=== PATIENT | female | born 1995 | race Caucasian/White ===

== ENCOUNTER 2016-12-17 20:43 | Emergency (ER) | payer OTHER ==
[~2016-12-17] VITALS: Ht 162.6 cm; Wt 58.6 kg
[~2016-12-17 20:43] MED LIST: BCPILLS PO
[2016-12-17] MEDS ORDERED: SODIUM CHLORIDE 0.9% 1000ML 1,000 ML IV STA (21:01)
[2016-12-17 21:07] VITALS: TEMP 37.9; Ht 162.6 cm; Wt 58.6 kg
[2016-12-17 21:11] VITALS: O2SAT 99
--- NOTE | 2016-12-17 21:18 | EMERGENCY ROOM VISIT NOTE ---
History Report prepared by Adams: Fady Coburn Under the Supervision of: Dr. Juan Manuel Stahl D.O. First contact with patient: 20:54 Chief Complaint: SYNCOPE (NEAR SYNCOPE) Stated Complaint: SYNCOPE History of Present Illness The patient is a 21 year old female who presents to the Emergency Room after a syncopal episode that occurred prior to arrival. 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 The patient also complains of feeling dizzy and lightheaded when she stands up. The patient denies getting hurt. She notes she hasn't been eating or drinking much since her wisdom teeth surgery. The patient denies having any prior episodes similar to this. She denies chest pain, shortness of breath, or leg swelling. Source of History: patient Onset: prior to arrival Position: other (global) Associated Symptoms: + LOC, No SOB, No chest pain Note: Other associated symptoms: feeling dizzy and lightheaded with standing Denies: leg swelling Review of Systems See HPI for pertinent positives & negatives. A total of 10 systems reviewed and were otherwise negative. Past Medical & Surgical Medical Problems: (1) Pain, dental Family History Heart disease Kidney stones Social History Smoking Status: Current Every Day Smoker Alcohol Use: none Marital Status: in relationship Housing Status: lives with significant other Occupation Status: employed Current/Historical Medications Scheduled Control Pills ( Control Pills), 1 TAB PO DAILY Penicillin V Potassium (Penicillin V Potassium), 500 MG PO QID Scheduled PRN Hydrocodone/Acetaminophen 7.5MG/325MG ([place] 7.5MG/325MG), 1 TAB PO Q6-8 HRS PRN for Pain Allergies Coded Allergies: No Known Allergies (Unverified , 05/25/14) Physical Exam Vital Signs Date Time Temp Pulse Resp B/P Pulse Ox O2 Delivery O2 Flow Rate FiO2 12/17/16 22:51 79 18 128/88 99 Room Air 12/17/16 22:01 91 16 131/70 98 88 133/87 93 134/86 12/17/16 22:00 91 18 131/70 98 Room Air 12/17/16 21:11 99 Room Air 12/17/16 21:07 37.9 94 18 139/72 99 Room Air 12/17/16 20:57 92 Physical Exam GENERAL: Patient is awake alert in no acute distress patient is resting comfortably and showing no signs of anxiety EYES: The conjunctivae are clear. The pupils are round and reactive. EARS, NOSE, MOUTH AND THROAT: The nose is without any evidence of any deformity. Mucous membranes are moist tongue is midline NECK: The neck is nontender and supple. RESPIRATORY: Normal respiratory effort is noted there is no evidence of wheezing rhonchi or rales CARDIOVASCULAR: Regular rate and rhythm noted there no murmurs rubs or gallops normal S1 normal S2 GASTROINTESTINAL: The abdomen is soft. Bowel sounds are present in all quadrants. Abdomen is nontender MUSCULOSKELETAL/EXTREMITIES: There is no evidence of gross deformity full range of motion is noted in the hips and shoulders SKIN: There is no obvious evidence of any rash. There are no petechiae, pallor or cyanosis noted. NEUROLOGIC: Patient is awake alert and oriented x3 strength is symmetric patellar reflexes are 2+ bilaterally Medical Decision & Procedures ER Provider Diagnostic Interpretation: X-ray results as stated below per interpretation by me and the radiologist. CHEST ONE VIEW PORTABLE CLINICAL HISTORY: Altered mental status. Weakness. COMPARISON STUDY: No previous studies for comparison. FINDINGS: Lung volumes are normal. Apparent hazy bibasilar opacities are likely due to overlying soft tissues. Cardiac size is normal. Mediastinal contours are normal. Pulmonary vascularity is normal. There is no consolidation. IMPRESSION: No acute cardiopulmonary findings. Electronically signed by: Rafi Dominique M.D. 12/17/2016 9:18 PM Dictated Date/Time: 12/17/2016 9:17 PM Laboratory Results 12/17/16 21:45 Red Blood Count 4.10, Mean Corpuscular Volume 83.9, Mean Corpuscular Hemoglobin 29.3, Mean Corpuscular Hemoglobin Concent 34.9, Mean Platelet Volume 10.0, Neutrophils (%) (Auto) 60.8, Lymphocytes (%) (Auto) 28.0, Monocytes (%) (Auto) 10.1, Eosinophils (%) (Auto) 0.7, Basophils (%) (Auto) 0.2, Neutrophils # (Auto ) 6.06, Lymphocytes # (Auto) 2.79, Monocytes # (Auto) 1.01, Eosinophils # (Auto ) 0.07, Basophils # (Auto) 0.02 12/17/16 21:45 Test 12/17/16 21:00 12/17/16 21:45 Urine Color YELLOW Urine Appearance CLEAR (CLEAR) Urine pH 6.5 (4.5-7.5) Urine Specific [place] 1.007 (1.000-1.030) Urine Protein NEG (NEG) Urine Glucose (UA) NEG (NEG) Urine Ketones NEG (NEG) Urine Occult Blood NEG (NEG) Urine Nitrite NEG (NEG) Urine Bilirubin NEG (NEG) Urine Urobilinogen NEG (NEG) Urine Leukocyte Esterase NEG (NEG) White Blood Count 9.97 K/uL (4.8-10.8) Red Blood Count 4.10 M/uL (4.2-5.4) Hemoglobin 12.0 g/dL (12.0-16.0) Hematocrit 34.4 % (37-47) Mean Corpuscular Volume 83.9 fL (80-100) Mean Corpuscular Hemoglobin 29.3 pg (25-34) Mean Corpuscular Hemoglobin Concent 34.9 g/dl (32-36) Platelet Count 225 K/uL (130-400) Mean Platelet Volume 10.0 fL (7.4-10.4) Neutrophils (%) (Auto) 60.8 % Lymphocytes (%) (Auto) 28.0 % Monocytes (%) (Auto) 10.1 % Eosinophils (%) (Auto) 0.7 % Basophils (%) (Auto) 0.2 % Neutrophils # (Auto) 6.06 K/uL (1.4-6.5) Lymphocytes # (Auto) 2.79 K/uL (1.2-3.4) Monocytes # (Auto) 1.01 K/uL (0.11-0.59) Eosinophils # (Auto) 0.07 K/uL (0-0.5) Basophils # (Auto) 0.02 K/uL (0-0.2) RDW Standard Deviation 36.5 fL (36.4-46.3) RDW Coefficient of Variation 11.8 % (11.5-14.5) Immature Granulocyte % (Auto) 0.2 % Immature Granulocyte # (Auto) 0.02 K/uL (0.00-0.02) Anion Gap 9.0 mmol/L (3-11) Est Creatinine Clear Calc Drug Dose 112.4 ml/min Estimated GFR () 145.2 Estimated GFR (Non- 125.3 BUN/Creatinine Ratio 12.2 (10-20) Calcium Level 8.8 mg/dl (8.5-10.1) Magnesium Level 1.8 mg/dl (1.8-2.4) Total Bilirubin 0.8 mg/dl (0.2-1) Direct Bilirubin 0.4 mg/dl (0-0.2) Aspartate Amino Transf (AST/SGOT) 16 U/L (15-37) Alanine Aminotransferase (ALT/SGPT) 19 U/L (12-78) Alkaline Phosphatase 61 U/L (45-117) Troponin I < 0.015 ng/ml (0-0.045) Total Protein 6.9 gm/dl (6.4-8.2) Albumin 3.4 gm/dl (3.4-5.0) Human Chorionic Gonadotropin, Qual NEG (NEG) Laboratory results per my review. Medications Administered Medications (Trade) Dose Ordered Sig/Samantha Route Start Time Stop Time Status Last Admin Dose Admin Sodium Chloride (Nss 1000ml) 1,000 ml @ 999 mls/hr Q1H1M STAT IV 12/17/16 21:01 12/17/16 22:01 DC 12/17/16 21:00 999 MLS/HR ECG Indication: syncope Rate (beats per minute): 91 Rhythm: normal sinus Findings: no acute ischemic change, no ectopy, other (no acute ST segment abnormality) ED Course 2058: The patient was evaluated in room A2. A complete history and physical examination were performed. 2100: Ordered NSS 1000 ml @ 999 mls/hr IV. 2230: At this time, I reevaluated the patient and she was feeling better. 5: Upon reevaluation, the patient is resting comfortably. I discussed the results and treatment plan with her. She verbalized agreement of the treatment plan. The patient was discharged home. Medical Decision Differential diagnosis: Etiologies such as vasovagal event, infection, hypoglycemia, electrolyte abnormalities, cardiac sources, intracerebral event, toxicologic, neurologic, as well as others were entertained. Nursing notes reviewed. The patient is a 21-year-old female who presented to the emergency department for an evaluation after having a syncopal episode. 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 The patient did not have any focal neurologic deficits. She was treated with IV fluids in the emergency department. On subsequent reevaluation she was feeling much better. She was encouraged to rest and avoid any strenuous activity. She was also encouraged to call her primary care physician and schedule follow-up appointment and discuss further testing such as echocardiogram and Holter monitor. Otherwise she was encouraged to return to the emergency Department immediately if symptoms change worsen or the need arises. Impression Primary Impression: Syncope Scribe Attestation The scribe's documentation has been prepared under my direction and personally reviewed by me in its entirety. I confirm that the note above accurately reflects all work, treatment, procedures, and medical decision making performed by me. Departure Information Dispostion Home / Self-Care Referrals Rashi Ferrari M.D. (PCP) Forms HOME CARE DOCUMENTATION FORM, IMPORTANT VISIT INFORMATION Patient Instructions [facility], Syncope Additional Instructions Call your family in the morning to schedule a follow-up appointment. You may require further testing such as an echocardiogram or Holter monitor further evaluate the cause of your symptoms. Rest and avoid any strenuous activity. Return to the emergency department immediately if symptoms change worsen or the need arises. Problem Qualifiers Primary Impression: Syncope Syncope type: unspecified Qualified Codes: R55 - Syncope and collapse
[2016-12-17] MEDS ORDERED: PNC/500 PO (21:28)
[2016-12-17] MEDS ORDERED: HYDR-3983 PO (21:28)
[2016-12-17 21:34] LABS: URINE APPEARANCE CLEAR (CLEAR); URINE BILIRUBIN NEG (NEG); URINE COLOR YELLOW; URINE NITRITE NEG (NEG); URINE PH 6.5 (4.5-7.5); URINE SPECIFIC GRAVITY 1.007 (1.000-1.030); UROBILINOGEN NEG (NEG)
[2016-12-17 21:36] LABS: MANUAL MICROSCOPIC REQUIRED? NO; REVIEW REQ? NO
[2016-12-17 21:56] LABS: BASO % 0.2 %; BASO ABS # 0.02 K/uL (0-0.2); COMPLETE YES; EOS % 0.7 %; HEMATOCRIT 34.4 % (37-47); IG% 0.2 %; LYMPH ABS # 2.79 K/uL (1.2-3.4); MEAN CELL VOLUME 83.9 fL (80-100); MEAN CORPUSCULAR HEMOGLOBIN 29.3 pg (25-34); MEAN CORPUSCULAR HGB CONC 34.9 g/dl (32-36); MONO % 10.1 %; NEUT % 60.8 %; PLATELET COUNT 225 K/uL (130-400); WHITE BLOOD COUNT 9.97 K/uL (4.8-10.8)
[2016-12-17 22:12] LABS: ALT/SGPT 19 U/L (12-78); BLOOD UREA NITROGEN 8 mg/dl (7-18); BUN/CREATININE RATIO 12.2 (10-20); CARBON DIOXIDE 24 mmol/L (21-32); CHLORIDE 108 mmol/L (98-107); CREATININE 0.69 mg/dl (0.60-1.20); GLUCOSE 72 mg/dl (70-99); MAGNESIUM 1.8 mg/dl (1.8-2.4); POTASSIUM 3.3 mmol/L (3.5-5.1); SODIUM 141 mmol/L (136-145)
[2016-12-17 22:17] LABS: ALKALINE PHOSPHATASE 61 U/L (45-117); AST/SGOT 16 U/L (15-37)
[2016-12-17 22:22] LABS: CALCIUM 8.8 mg/dl (8.5-10.1); PREG INTERNAL NEGATIVE QC NEG CLEAR BACKGROUND; PREG INTERNAL POSITIVE QC POS CONTROL LINE
[2016-12-17 22:51] VITALS: BP 128/88; PULSE 79; O2SAT 99
== END 2016-12-17 23:01 | disposition home or self-care (01) ==
LOC: EDBD 20:43 → C.EDA 20:46
DX: R55 Syncope and collapse (principal); Z79.3 Long term (current) use of hormonal contraceptives; Z82.49 Family history of ischemic heart disease and other diseases of the circulatory system; Z84.1 Family history of disorders of kidney and ureter; F17.200 Nicotine dependence, unspecified, uncomplicated

== ENCOUNTER 2021-02-16 17:40 | Observation (INO) ==
[2021-02-16] MEDS ORDERED: SODIUM CHLORIDE 0.9% 1000ML 1,000 ML IV SCH (18:00)
--- NOTE | 2021-02-16 18:22 | Emergency Department Note ---
Impression & Plan Molar , Abnormal vaginal bleeding ED Provider Note CHIEF COMPLAINT: Vaginal bleeding, possible miscarriage HISTORY OF PRESENTING ILLNESS: This is a 26-year-old female who presents to the emergency department by private vehicle with complaint of vaginal bleeding. She states she has been having bleeding for the past week, but she had several gushes of blood and passed several large clots today. She notes that she was evaluated initially at [place] emergency department where they told her she was and told her she had a molar . She did not realize she was and is not sure of when her last period was. She is G3, P1 with a history of a possible miscarriage about 2 years ago. She states that she followed up with Priscilla Servin T[employer] OFFICER, and was scheduled to have a D&C this coming Wednesday. She denies any abdominal pain and has been having mild cramping off and on for the past week similar to period cramps. She currently rates her pain 3/10. She denies any fevers, chills, or loss of appetite. She denies any dizziness or syncope. She denies any chest pain, chest tightness, shortness of breath, palpitations, cough or URI symptoms. She denies any back pain. She denies any nausea or vomiting or urinary complaints. REVIEW OF SYSTEMS: A complete 10 point review of systems was reviewed with the patient with pertinent positives and negatives as per history of present illness. All else were negative. PAST MEDICAL HISTORY: No significant past medical or surgical history SOCIAL HISTORY: Lives at home, she is a current everyday smoker ALLERGIES: No known allergies PHYSICAL EXAM: CONSTITUTIONAL: Pleasant and cooperative. Nontoxic-appearing and in no acute distress, but appears anxious. Mildly dehydrated, but otherwise well appearing and well nourished. HEENT: Normocephalic, atraumatic. Pharynx normal. Tacky mucous membranes. NECK: Supple, full active range of motion without discomfort. RESPIRATORY: Clear to auscultation bilaterally with no wheezing, crackles, rhonchi or stridor. Equal expansion bilaterally. CARDIOVASCULAR: Regular rate and rhythm with no murmurs, rubs or gallops. Normal peripheral perfusion. No edema. GASTROINTESTINAL: Tender to palpation in the suprapubic abdomen, no rebound tenderness or guarding. Soft, nondistended. No palpable masses or HSM. Bowel sounds present in all quadrants. No CVA tenderness bilaterally. MUSCULOSKELETAL: Full range of motion of all joints without discomfort. INTEGUMENTARY: No rash or other significant dermatologic conditions noted. NEUROLOGIC: Alert and oriented X 4 with normal affect. Normal strength and sensation in all 4 extremities. Normal beach. Normal gait observed. ED COURSE AND MEDICAL DECISION MAKING: CC: Patient presenting with complaint of vaginal bleeding and abdominal cramping DIFFERENTIAL DIAGNOSIS: Includes, but not limited to Etiologies such as threatened AB, miscarriage, ectopic , dysfunction uterine bleeding, bleeding dyscrasia, trauma, infection, as well as others were entertained. INTERPRETATION OF LABS: Mild leukocytosis, mild anemia, normal platelets, mild hypokalemia, no other significant electrolyte abnormalities, normal renal function, normal liver enzymes. Coagulation factors within normal limits. Se rum quant significantly elevated. Covid negative. Blood type O+. IMAGING: Ultrasound OB first trimester: Preliminary findings onlystatrad Uterus is enlarged in size, containing complex solid and thick material in the endometrium, consistent with molar . No live intrauterine identified. Ovaries are normal in size and echogenicity. MEDICATION RECONCILIATION: I attest that I have personally reviewed the patient's current medication list. INITIAL VITAL SIGNS REVIEW: I reviewed the patient's initial vital signs and interpret them as follows: T: Afebrile; BP: Mildly hypertensive; HR: Tachycardic; RR: Within normal limits; Pulse Ox: Within normal limits on room air. MDM SUMMARY: Patient was evaluated at bedside, history and physical exam performed. Patient is alert and oriented, in no acute distress, but appears slightly anxious, resting in the stretcher. She is afebrile and nontoxic-appearing, she is noted to be tachycardic and mildly dehydrated. Abdomen is mildly tender to palpation in the suprapubic abdomen, but no acute abdomen. Cardiac monitoring: An order was placed for continuous cardiac monitoring. The monitor shows a rate of 112 bpm with sinus tachycardia rhythm. A pelvic exam was deferred at this time due to patient discomfort. Orders were placed for labs including beta hCG quantitative level and type and screen, IV fluid bolus for hydration, IV Tylenol for pain, and pelvic ultrasound to evaluate for heavy vaginal bleeding. Patient discussed with Dr. Woodard, who agrees with my assessment, plan, and disposition. Labs and imaging reviewed, she is not acutely anemic. Serum quant hCG is still significantly elevated. Pelvic ultrasound reviewed, noting recent molar and no live intrauterine identified. The patient has had persistent vaginal bleeding with passage of several large clots. I spoke on the phone with Dr. Hood, T[employer], who feels the patient should go to the OR tonight for D&E procedure. He did say that it was reasonable to give her Toradol for pain. Patient reassessed multiple times throughout ED stay, she has remained hemodynamically stable and afebrile and notes that her pain is improving after the Toradol and Tylenol. Her tachycardia is downtrending with IV fluids. The patient was updated on all results and plan for admission and surgery tonight, all questions were answered to the best of my ability and the patient was comfortable with this plan. The patient was stable at time of admission. The chart was completed utilizing [employer] Speech voice recognition software. Grammatical errors, random word insertions, pronoun errors, and incomplete sentences are an occasional consequence of this system due to software limitations, ambient noise, and hardware issues. Any formal questions or concerns about the content, text, or information contained within the body of this dictation should be directly addressed to the nurse practitioner for clarification. Past Med/Surg History Medical History GERD (gastroesophageal reflux disease) only during Social History Smoking Status: Current every day smoker Cigarettes Per Day: 10-15 cig a day; Second Hand Exposure: No; Hx Alcohol Use: Yes Hx Substance Use: No Preferred Language: Indonesian Communication Ability: Effective [employer] Grinder Required: No Beliefs That Will Affect Care: None marital status: Current Living Situation: Spouse Feels Safe at Home: Yes Assistive Devices: Contacts Allergies Allergies Allergy/AdvReac Type Severity Reaction Status Date / Time No Known Allergies Allergy Verified 02/16/21 18:20 Home Meds Home Medications Medication Instructions Recorded Confirmed [id number] 1 tab PO DAILY 02/16/21 02/16/21 [] Results & Data (ED) Vital Signs Vital Signs - 24 hr 02/16/21 17:43 02/16/21 20:18 02/16/21 20:19 Temperature 36.3 C L Temperature Source Temporal Artery Scan Pulse Rate 125 H 110 H Pulse Rate [Apical] Pulse Rate from SpO2 Sensor 109 H Pulse Rhythm [Apical] Pulse Strength [Apical] Respiratory Rate 20 14 Respiratory Effort / Characteristics Respiratory Depth Normal Respiratory Pattern Blood Pressure 140/80 115/85 Blood Pressure [Right Arm] Blood Pressure Mean 100 95 Blood Pressure Mean [Right Arm] Blood Pressure Position [Right Arm] Pulse Oximetry 99 98 Oxygen Delivery Method Room Air Room Air Room Air Sepsis Recent Fever Within 48 Hours No Sepsis New/Unexplained Change in Mental Status N/A Sepsis Action Taken by Nursing No Action Required 02/16/21 20:21 02/16/21 21:39 02/16/21 21:59 Temperature Temperature Source Pulse Rate Pulse Rate [Apical] 107 H 100 H Pulse Rate from SpO2 Sensor 96 H Pulse Rhythm [Apical] Regular Regular Pulse Strength [Apical] Normal Normal Respiratory Rate 16 15 Respiratory Effort / Characteristics Non-Labored Spontaneous Non-Labored Spontaneous Non-Labored Spontaneous Respiratory Depth Normal Normal Normal Respiratory Pattern Regular Regular Regular Blood Pressure 120/71 Blood Pressure [Right Arm] 115/85 120/71 Blood Pressure Mean 87 Blood Pressure Mean [Right Arm] 95 87 Blood Pressure Position [Right Arm] Sitting Lying Pulse Oximetry 98 100 Oxygen Delivery Method Room Air Room Air Sepsis Recent Fever Within 48 Hours Sepsis New/Unexplained Change in Mental Status Sepsis Action Taken by Nursing Laboratory Data Result diagrams: 02/16/21 17:58 02/16/21 17:58 Lab Results 02/16/21 02/16/21 02/16/21 Range/Units 17:58 17:58 17:58 WBC 12.18 H (4.8-10.8) K/uL RBC 3.41 L (4.2-5.4) M/uL Hgb 10.4 L (12.0-16.0) g/dL Hct 30.1 L (37-47) % MCV 88.3 (80-100) fL MCH 30.5 (25-34) pg MCHC 34.6 (32-36) g/dL RDW Std Deviation 43.0 (36.4-46.3) fL RDW Coeff of Patrizia 13.4 (11.5-14.5) % Plt Count 324 (130-400) K/uL MPV 9.6 (7.4-10.4) fL Immature Gran % (Auto) 0.2 % Neut % (Auto) 66.4 % Lymph % (Auto) 22.1 % [place] % (Auto) 10.5 % Eos % (Auto) 0.7 % Baso % (Auto) 0.1 % Neut # (Auto) 8.09 H (1.4-6.5) K/uL Lymph # (Auto) 2.69 (1.2-3.4) K/uL [place] # (Auto) 1.28 H (0.11-0.59) K/uL Eos # (Auto) 0.08 (0-0.5) K/uL Baso # (Auto) 0.01 (0-0.2) K/uL Immature Gran # (Auto) 0.03 H (0.00-0.02) K/uL PT 10.0 (9.0-12.0) Seconds INR 1.0 (0.9-1.1) APTT 27.2 (21.0-31.0) Seconds PTT Ratio 1.0 Sodium (136-145) mmol/L Potassium (3.5-5.1) mmol/L Chloride (98-107) mmol/L Carbon Dioxide (21-32) mmol/L Anion Gap (3-11) BUN (7-18) mg/dl Creatinine (0.6-1.2) mg/dl Est Cr Clr Drug Dosing ml/min Est GFR ( Amer) ml/min Est GFR (Non-Af Amer) ml/min BUN/Creatinine Ratio (10-20) Glucose (70-99) mg/dl Calcium (8.5-10.1) mg/dl Total Bilirubin (0.2-1) mg/dl AST (15-37) U/L ALT (12-78) U/L Alkaline Phosphatase (45-117) U/L Total Protein (6.4-8.2) gm/dl Albumin (3.4-5.0) gm/dl Globulin (2.5-4.0) gm/dl Albumin/Globulin Ratio (0.9-2) HCG, Quant mIU/ml COVID-19 Eval Order SARS-CoV-2 (PCR) (Negative) Blood Type O Positive Antibody Screen NEGATIVE 02/16/21 02/16/21 02/16/21 Range/Units 17:58 17:58 21:49 WBC (4.8-10.8) K/uL RBC (4.2-5.4) M/uL Hgb (12.0-16.0) g/dL Hct (37-47) % MCV (80-100) fL MCH (25-34) pg MCHC (32-36) g/dL RDW Std Deviation (36.4-46.3) fL RDW Coeff of Patrizia (11.5-14.5) % Plt Count (130-400) K/uL MPV (7.4-10.4) fL Immature Gran % (Auto) % Neut % (Auto) % Lymph % (Auto) % [place] % (Auto) % Eos % (Auto) % Baso % (Auto) % Neut # (Auto) (1.4-6.5) K/uL Lymph # (Auto) (1.2-3.4) K/uL [place] # (Auto) (0.11-0.59) K/uL Eos # (Auto) (0-0.5) K/uL Baso # (Auto) (0-0.2) K/uL Immature Gran # (Auto) (0.00-0.02) K/uL PT (9.0-12.0) Seconds INR (0.9-1.1) APTT (21.0-31.0) Seconds PTT Ratio Sodium 137 (136-145) mmol/L Potassium 3.3 L (3.5-5.1) mmol/L Chloride 105 (98-107) mmol/L Carbon Dioxide 22 (21-32) mmol/L Anion Gap 10.0 (3-11) BUN 11 (7-18) mg/dl Creatinine 0.60 (0.6-1.2) mg/dl Est Cr Clr Drug Dosing 123.8 ml/min Est GFR ( Amer) 146.8 ml/min Est GFR (Non-Af Amer) 126.7 ml/min BUN/Creatinine Ratio 18.6 (10-20) Glucose 97 (70-99) mg/dl Calcium 9.1 (8.5-10.1) mg/dl Total Bilirubin 0.4 (0.2-1) mg/dl AST 14 L (15-37) U/L ALT 22 (12-78) U/L Alkaline Phosphatase 87 (45-117) U/L Total Protein 7.5 (6.4-8.2) gm/dl Albumin 3.6 (3.4-5.0) gm/dl Globulin 3.9 (2.5-4.0) gm/dl Albumin/Globulin Ratio 0.9 (0.9-2) HCG, Quant 665666 mIU/ml COVID-19 Eval Order Covid19 at [facility] SARS-CoV-2 (PCR) (Negative) Blood Type Antibody Screen 02/16/21 Range/Units 21:49 WBC (4.8-10.8) K/uL RBC (4.2-5.4) M/uL Hgb (12.0-16.0) g/dL Hct (37-47) % MCV (80-100) fL MCH (25-34) pg MCHC (32-36) g/dL RDW Std Deviation (36.4-46.3) fL RDW Coeff of Patrizia (11.5-14.5) % Plt Count (130-400) K/uL MPV (7.4-10.4) fL Immature Gran % (Auto) % Neut % (Auto) % Lymph % (Auto) % [place] % (Auto) % Eos % (Auto) % Baso % (Auto) % Neut # (Auto) (1.4-6.5) K/uL Lymph # (Auto) (1.2-3.4) K/uL [place] # (Auto) (0.11-0.59) K/uL Eos # (Auto) (0-0.5) K/uL Baso # (Auto) (0-0.2) K/uL Immature Gran # (Auto) (0.00-0.02) K/uL PT (9.0-12.0) Seconds INR (0.9-1.1) APTT (21.0-31.0) Seconds PTT Ratio Sodium (136-145) mmol/L Potassium (3.5-5.1) mmol/L Chloride (98-107) mmol/L Carbon Dioxide (21-32) mmol/L Anion Gap (3-11) BUN (7-18) mg/dl Creatinine (0.6-1.2) mg/dl Est Cr Clr Drug Dosing ml/min Est GFR ( Amer) ml/min Est GFR (Non-Af Amer) ml/min BUN/Creatinine Ratio (10-20) Glucose (70-99) mg/dl Calcium (8.5-10.1) mg/dl Total Bilirubin (0.2-1) mg/dl AST (15-37) U/L ALT (12-78) U/L Alkaline Phosphatase (45-117) U/L Total Protein (6.4-8.2) gm/dl Albumin (3.4-5.0) gm/dl Globulin (2.5-4.0) gm/dl Albumin/Globulin Ratio (0.9-2) HCG, Quant mIU/ml COVID-19 Eval Order SARS-CoV-2 (PCR) NEGATIVE (Negative) Blood Type Antibody Screen Administered Medications Discontinued Medications Acetaminophen (Acetaminophen 1000 Mg/100 Ml Iv) 1,000 mg IV NOW STA Stop: 02/16/21 20:36 Last Admin: 02/16/21 20:59 Dose: 1,000 mg Documented by: [id number] Sodium Chloride (Nss 1000ml) 1,000 mls @ 999 mls/hr IV .Q1H1M HITESH Stop: 02/16/21 19:00 Last Infusion: 02/16/21 21:15 Dose: 0 mls/hr Documented by: [id number] Admin: 02/16/21 20:00 Dose: 999 mls/hr Documented by: [id number] Ketorolac Tromethamine (Ketorolac Tromethamine 15 Mg/Ml Vial) Confirm Administered Dose 15 mg .ROUTE .STK-MED ONE Stop: 02/16/21 20:57 Last Admin: 02/16/21 20:59 Dose: 15 mg Documented by: [id number] Ketorolac Tromethamine (Ketorolac Tromethamine 15 Mg/Ml Vial) 15 mg IV NOW STA Stop: 02/16/21 20:58 Last Admin: 02/16/21 21:04 Dose: Not Given Documented by: [id number] Discharge Plan Visit Data Chief Complaint: Vaginal Bleeding Stated Complaint: miscarry ED Provider: Almas Woodard ED Midlevel Provider: Sisi Ramos Discharge Problem: Molar , Abnormal vaginal bleeding Patient Disposition: Admitted As Inpatient Forms Stand Alone Forms: [employer] Prescriptions Prescriptions: No Action 28-800 mg-mcg Tablet 1 tab PO DAILY RF: 0 Referrals Referrals: PCP,NO [Primary Care Provider] -
[2021-02-16 18:34] LABS: Basophils # (auto) 0.01 K/uL (0-0.2); Basophils % (auto) 0.1 %; Eosinophils # (auto) 0.08 K/uL (0-0.5); Eosinophils % (auto) 0.7 %; Hematocrit (blood only) 30.1 % (37-47); Hemoglobin 10.4 g/dL (12.0-16.0); Immature Granulocytes # (auto) 0.03 K/uL (0.00-0.02); Immature Granulocytes % (auto) 0.2 %; Lymphocytes # (auto) 2.69 K/uL (1.2-3.4); Lymphocytes % (auto) 22.1 %; Mean Corpuscular Hemoglobin 30.5 pg (25-34); Mean Corpuscular Hgb Conc 34.6 g/dL (32-36); Mean Corpuscular Volume 88.3 fL (80-100); Mean Platelet Volume 9.6 fL (7.4-10.4); Monocytes # (auto) 1.28 K/uL (0.11-0.59); Monocytes % (auto) 10.5 %; Neutrophils # (auto) 8.09 K/uL (1.4-6.5); Neutrophils % (auto) 66.4 %; Platelet Count 324 K/uL (130-400); RDW Coefficient of Variation 13.4 % (11.5-14.5); Red Blood Count 3.41 M/uL (4.2-5.4); White Blood Count 12.18 K/uL (4.8-10.8)
[2021-02-16 18:43] LABS: Partial Thromboplastin Time 27.2 Seconds (21.0-31.0)
[2021-02-16 18:56] LABS: Albumin Level 3.6 gm/dl (3.4-5.0); BUN Creatinine Ratio 18.6 (10-20); Calcium 9.1 mg/dl (8.5-10.1); Creatinine Clr Calc Pharmacy 123.8 ml/min; Est GFR (African American) 146.8 ml/min; Est GFR (Non-African American) 126.7 ml/min; Potassium 3.3 mmol/L (3.5-5.1)
[2021-02-16 18:59] LABS: Albumin Globulin Ratio 0.9 (0.9-2); Bilirubin,Total 0.4 mg/dl (0.2-1); Globulin 3.9 gm/dl (2.5-4.0); Total Protein 7.5 gm/dl (6.4-8.2)
[2021-02-16] MEDS ORDERED: ACETAMINOPHEN 1000 MG/100 ML IV IV STA (20:35)
[2021-02-16] MEDS ORDERED: KETOROLAC TROMETHAMINE 15 MG/ML VIAL ONE (20:56)
[2021-02-16] MEDS ORDERED: KETOROLAC TROMETHAMINE 15 MG/ML VIAL IV STA (20:57)
--- NOTE | 2021-02-16 21:57 | History & Physical Report ---
Date of Service February 16, 2021 Assessment & Plan (1) Molar : History of Present Illness Chief Complaint: vaginal bleeding Primary Care Provider: NO PCP 26 F [id number] with onset of bleeding this afternoon with known molar scheduled to have D&E on Wednesday presents with heavy bleeding and passage of clots. Allergies Allergy/AdvReac Type Severity Reaction Status Date / Time No Known Allergies Allergy Verified 02/16/21 18:20 Home Medications Medication Instructions Recorded Confirmed Type [id number] fumarate-FA 1 tab PO DAILY 02/16/21 02/16/21 History [] Patient History Medical History GERD (gastroesophageal reflux disease) only during Social History Smoking Status: Current every day smoker Cigarettes Per Day: 10-15 cig a day; Second Hand Exposure: No; Hx Alcohol Use: Yes Hx Substance Use: No Preferred Language: Kyrgyz Communication Ability: Effective Director Student [employer] Required: No Beliefs That Will Affect Care: None marital status: Current Living Situation: Spouse Feels Safe at Home: Yes Assistive Devices: Contacts OB History x1 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 History Miscarriage x1 Review of Systems All systems reviewed & are unremarkable except as noted in HPI & below Physical Exam Constitutional: WD/WN, vitals as above + acute distress and + ill appearing Eyes: PERRL, conjunctivae normal, anicteric sclerae Respiratory: normal respiratory effort, lungs clear to auscultation Cardiovascular: Rate/Rhythm: regular rate and + tachycardic Gastrointestinal (Abdomen): Percussion/Palpation: abdomen soft and normal to percussion Skin: no rashes, warm and dry Neurologic: patellar DTR's 2+ bilat, sensation intact Psychiatric: A+Ox3, euthymic affect Results & Data ([facility]) Vital Signs (Past 12 Hours) Vital Signs Temp Pulse Pulse Resp BP BP Pulse Ox 02/16/21 20:21 107 H 16 115/85 98 02/16/21 17:43 36.3 C L 125 H 20 140/80 99 Laboratory Results Laboratory Results - last 48 hr 02/16/21 02/16/21 02/16/21 17:58 17:58 17:58 WBC 12.18 H RBC 3.41 L Hgb 10.4 L Hct 30.1 L MCV 88.3 MCH 30.5 MCHC 34.6 RDW Std Deviation 43.0 RDW Coeff of Patrizia 13.4 Plt Count 324 MPV 9.6 Immature Gran % (Auto) 0.2 Neut % (Auto) 66.4 Lymph % (Auto) 22.1 [place] % (Auto) 10.5 Eos % (Auto) 0.7 Baso % (Auto) 0.1 Neut # (Auto) 8.09 H Lymph # (Auto) 2.69 [place] # (Auto) 1.28 H Eos # (Auto) 0.08 Baso # (Auto) 0.01 Immature Gran # (Auto) 0.03 H PT 10.0 INR 1.0 APTT 27.2 PTT Ratio 1.0 Sodium Potassium Chloride Carbon Dioxide Anion Gap BUN Creatinine Est Cr Clr Drug Dosing Est GFR ( Amer) Est GFR (Non-Af Amer) BUN/Creatinine Ratio Glucose Calcium Total Bilirubin AST ALT Alkaline Phosphatase Total Protein Albumin Globulin Albumin/Globulin Ratio HCG, Quant COVID-19 Eval Order Blood Type O Positive 02/16/21 02/16/21 02/16/21 17:58 17:58 21:49 WBC RBC Hgb Hct MCV MCH MCHC RDW Std Deviation RDW Coeff of Patrizia Plt Count MPV Immature Gran % (Auto) Neut % (Auto) Lymph % (Auto) [place] % (Auto) Eos % (Auto) Baso % (Auto) Neut # (Auto) Lymph # (Auto) [place] # (Auto) Eos # (Auto) Baso # (Auto) Immature Gran # (Auto) PT INR APTT PTT Ratio Sodium 137 Potassium 3.3 L Chloride 105 Carbon Dioxide 22 Anion Gap 10.0 BUN 11 Creatinine 0.60 Est Cr Clr Drug Dosing 123.8 Est GFR ( Amer) 146.8 Est GFR (Non-Af Amer) 126.7 BUN/Creatinine Ratio 18.6 Glucose 97 Calcium 9.1 Total Bilirubin 0.4 AST 14 L ALT 22 Alkaline Phosphatase 87 Total Protein 7.5 Albumin 3.6 Globulin 3.9 Albumin/Globulin Ratio 0.9 HCG, Quant [id number] COVID-19 Eval Order Covid19 at [facility] Blood Type Code Status & VTE Plan VTE Prophylaxis Plan VTE Prophylaxis will be ordered: No
[2021-02-16] MEDS ORDERED: SUCCINYLCHOLINE CHLORIDE 20 MG/ML 10 ML VIAL IV ONE (22:33)
[2021-02-16] MEDS ORDERED: PROPOFOL IV EMULSION 10 MG/ML 20 ML VIAL IV ONE (22:33)
[2021-02-16] MEDS ORDERED: MIDAZOLAM HCL 1 MG/ML 2ML VIAL ONE (22:33)
[2021-02-16] MEDS ORDERED: fentaNYL citrate 100 MCG/2 ML VIAL ONE (22:33)
[2021-02-16] MEDS ORDERED: ONDANSETRON INJ 2 MG/ML 2 ML VIAL ONE (22:41)
[2021-02-16] MEDS ORDERED: DEXAMETHASONE SOD INJ 4 MG/ML VIAL ONE (22:41)
[2021-02-16] MEDS ORDERED: PROMETHAZINE HCL 12.5 MG in SODIUM CHLORIDE 0.9% 50 ML IV PRN (23:13)
[2021-02-16] MEDS ORDERED: ePHEDrine sulfate 50 MG/ML AMP IV PRN (23:13)
[2021-02-16] MEDS ORDERED: fentaNYL citrate 100 MCG/2 ML VIAL IV PRN (23:13)
[2021-02-16] MEDS ORDERED: ATROPINE SULFATE 0.1 MG/ML 10ML SYR IV PRN (23:13)
[2021-02-16] MEDS ORDERED: HYDROmorphone INJ 2 MG/ML SYR/VIAL IV PRN (23:13)
[2021-02-16] MEDS ORDERED: ONDANSETRON INJ 2 MG/ML 2 ML VIAL IV PRN (23:13)
--- NOTE | 2021-02-16 23:13 | Anesthesiology Consultation ---
Date of Service February 16, 2021 Assessment & Plan ASA ASA2E Proposed Anesthesia Anesthesia Type: General Risk / Benefits Reviewed With: PT / POA / Parent / Guardian, Accepts Plan and Informed Consent Obtained History Surgery Operation Date: 02/16/21 22:15 Proposed Procedures p Dilatation and Evacuation - Chris Hood MD Operation Date: 02/16/21 22:25 Proposed Procedures p Dilation and Evacuation - Chris Hood MD Height/Weight Height: 5 ft 4 in Weight: 56.2 kg Allergies Allergy/AdvReac Type Severity Reaction Status Date / Time No Known Allergies Allergy Verified 02/16/21 18:20 Medications Home Medications Medication Instructions Recorded Confirmed Last Taken [id number] fumarate-FA 1 tab PO DAILY 02/16/21 02/16/21 02/16/21 [] NPO Date Last Intake of Fluids: 02/15/21 Time Last Intake of Fluids: 17:00 Date Last Intake of Solids: 02/15/21 Time Last Intake of Solids: 17:00 Past Medical History Medical History GERD (gastroesophageal reflux disease) only during Exercise / Class Metabolic Activity 1 > 8 Run/Swim/Ski/Tennis Past Anesthesia History No Hx of Anesthesia Complications and No Family Hx of Anesthesia Complications History of PONV No Hx of PONV and No Hx of Motion Sickness Social History Smoking Status: Current every day smoker tobacco type: cigarettes Smoking cigarettes per day: 10-15 cig a day Hx Alcohol Use: Yes alcohol intake frequency: holidays/special occasions only Hx Substance Use: No substance use type: does not use Review of Systems denies fever/cough/ colds/ chest pain/ SOB/ VENKAT denies VENKAT Physical Exam Vital Signs Last Vital Signs Temp 36.3 C L 02/16/21 17:43 Pulse 100 H 02/16/21 21:59 Resp 15 02/16/21 21:59 BP 120/71 02/16/21 21:59 Pulse Ox 100 02/16/21 21:59 ENMT Mouth: no TMJ abnormality and no dentition abnormality Thyromental Distance: > or= 3.5 Finger Breadths Mallampati Class: II Neck neck extension not limited Respiratory normal respiratory effort; no respiratory distress Auscultation: lungs clear to auscultation bilaterally Cardiovascular Rate/Rhythm: regular rate and regular rhythm Neurologic moves all extremities Psychiatric Orientation: alert and oriented x 3 Testing Laboratory Results 02/16/21 17:58 02/16/21 17:58 PT 10.0 Seconds (9.0-12.0) 02/16/21 17:58 INR 1.0 (0.9-1.1) 02/16/21 17:58 APTT 27.2 Seconds (21.0-31.0) 02/16/21 17:58 HCG, Quant [id number] mIU/ml 02/16/21 17:58 Blood Type O Positive 02/16/21 17:58 Antibody Screen NEGATIVE 02/16/21 17:58 02/16/21 17:58 HCG, Quant [id number]
[2021-02-16] MEDS ORDERED: miSOPROStoL 100 MCG TAB ONE (23:41)
--- NOTE | 2021-02-17 00:08 | Post Operative Brief Note ---
Immediate Post Op Note v1 Date of Surgery February 17, 2021 Pre & Post Diagnosis Operation Date: 02/16/21 22:15 <No data on this case meets the specified criteria> Operation Date: 02/16/21 22:25 Pre-Op Diagnosis: Molar Post-Op Diagnosis: Molar I identified the patient and participated in the time-out.: Yes Procedure Operation Date: 02/16/21 22:15 <No data on this case meets the specified criteria> Operation Date: 02/16/21 22:25 Actual Procedures p Dilation and Evacuation with Ultrasound Guidance(Not Applicable) - Chris Hood MD Surgeon Chris Hood MD Music Adapter none Estimated Blood Loss 500 Findings Consistent with Post-Op Diagnosis products of conception from molar Fluids LR 900 Specimens products of conception Anesthesia Type General Complications none none Disposition Accompanied Patient To Recovery: Yes Disposition: Surgical ICU Overlapping Procedure I was present for: the critical portions of procedure. I was immediately available: during the entire case. Back up surgeon: was not required during procedure.
--- NOTE | 2021-02-17 00:39 | Anesthesiology Progress Note ---
Date of Service February 17, 2021 Anesthesia Post Procedure Vital Signs Vital Signs: Temp Pulse Pulse Resp BP BP Pulse Ox 02/17/21 00:31 74 18 126/81 98 02/17/21 00:23 91 H 18 118/90 100 02/17/21 00:15 36.6 C 81 18 122/68 100 02/16/21 21:59 100 H 15 120/71 120/71 100 02/16/21 20:21 107 H 16 115/85 98 02/16/21 20:18 110 H 14 115/85 98 02/16/21 17:43 36.3 C L 125 H 20 140/80 99 Pain Intensity Bilateral Upper Abdomen: Pain Intensity: 7 Transfer of Care Handoff Completed per policy Notes Mental Status: alert / awake / arousable and participated in evaluation Patient Amnestic to Procedure: Yes Nausea / Vomiting: adequately controlled Pain: adequately controlled Airway Patency, RR, SpO2: stable & adequate BP & HR: stable & adequate Hydration State: stable & adequate Anesthetic Complications: no major complications apparent and Pt Satisfied with anesthetic care
[2021-02-17] MEDS ORDERED: ONDANSETRON INJ 2 MG/ML 2 ML VIAL IV PRN ×2 (01:11)
[2021-02-17] MEDS ORDERED: ACETAMINOPHEN 325 MG TAB PO PRN (01:11)
[2021-02-17] MEDS ORDERED: KETOROLAC 30 MG/ML VIAL IV PRN (01:11)
[2021-02-17] MEDS ORDERED: MoRPHine SULFATE 2 MG/ML CARP IV PRN (01:11)
[2021-02-17] MEDS ORDERED: LACTATED RINGER'S 1,000 ML IV SCH (01:11)
[2021-02-17] MEDS ORDERED: OXYTOCIN 20 UNITS in LACTATED RINGER'S 1,000 ML IV SCH (01:30)
--- NOTE | 2021-02-17 06:08 | Operative Report (OR) ---
DATE OF OPERATION: 02/17/2021 PREOPERATIVE DIAGNOSIS: Molar , vaginal bleeding. POSTOPERATIVE DIAGNOSIS: Molar , vaginal bleeding. PROCEDURE: D and E under ultrasound guidance. SURGEON: Chris Hood MD. GROUP PRACTICE PEDIATRICIAN: None. ANESTHESIA: General. COMPLICATIONS: None. FINDINGS: Molar consistent with products of conception. ESTIMATED BLOOD LOSS: 500 mL. URINE OUTPUT: 100 mL. TOTAL FLUIDS: 900 mL. COMPLICATIONS: None. CLINICAL HISTORY: The patient is a 26-year-old female, para 1-0-1-1, who presents in the ER with vaginal bleeding. She was a known molar . The patient that had been scheduled for D and E for Wednesday came into the ER bleeding, passing large clots. Ultrasound revealed the uterus to be least 16 weeks' size. Her hCG was elevated and a decision was made to proceed with a D and E emergently. Timeout was called prior to the start of the procedure. DESCRIPTION OF PROCEDURE: After satisfactory general anesthesia, the patient was prepped and draped in usual sterile fashion. An technical manager chemical plant was present for the procedure, scanned the patient, revealed presence of a molar and the bladder was then emptied. Products of conception were coming out of the os. The cervix was open. A weighted speculum after being introduced into the vagina. Following this, the ring forceps were then used to grasp the anterior lip of the cervix. A #14 curved Vacurette was inserted suctioning and curetting out products of conception. During this process, the ultrasound guided procedure was used to locate the probe, so as to not rupture the uterus. At the end of this procedure, the sharp endometrial curette was then used curetting out minimal amounts of tissue, no active bleeding was noted. Ultrasound once more scanned the patient revealing no evidence of any tissue. After the procedure, there was no active bleeding. Pitocin was started in the IV, 1000 mcg of Cytotec were placed rectally. All remaining instruments were then removed from the vagina. The final sponge, needle and instrument count were found to be correct. ESTIMATED BLOOD LOSS: 500 mL. The patient was then placed supine on a stretcher and taken to recovery room in stable condition. I attest to the content of the Intraoperative Record and any orders documented therein. Any exception s are noted below.
[2021-02-17 06:51] LABS: Hematocrit (blood only) 20.2 % (37-47); Hemoglobin 6.8 g/dL (12.0-16.0); Mean Corpuscular Hemoglobin 30.2 pg (25-34); Mean Corpuscular Hgb Conc 33.7 g/dL (32-36); Mean Corpuscular Volume 89.8 fL (80-100); Mean Platelet Volume 9.4 fL (7.4-10.4); Platelet Count 238 K/uL (130-400); RDW Coefficient of Variation 13.5 % (11.5-14.5); Red Blood Count 2.25 M/uL (4.2-5.4); White Blood Count 8.44 K/uL (4.8-10.8)
--- NOTE | 2021-02-17 08:46 | Gynecologic Progress Note ---
Date of Service February 17, 2021 Assessment & Plan Admission and Anticipated Discharge Date Admission Date: February 16, 2021 Subjective POD#1 s/p D&E for molar Review of Systems Review of Systems: All systems reviewed & are unremarkable except as noted in HPI & below Physical Exam Constitutional: WD/WN, vitals as above well developed and comfortable denies shortness of breath or dizziness when OOB Results & Data ([facility]) Vital Signs (Past 12 Hours) Vital Signs Temp Pulse Pulse Resp BP BP BP 02/17/21 07:45 37.2 C 73 102/52 L 02/17/21 04:05 36.9 C 98 H 16 104/70 02/17/21 03:05 36.4 C L 89 16 97/64 L 02/17/21 02:05 36.5 C 91 H 16 103/67 02/17/21 01:35 36.7 C 77 16 102/69 02/17/21 01:05 36.7 C 94 H 16 115/77 02/17/21 00:41 79 16 117/71 02/17/21 00:31 74 18 126/81 02/17/21 00:23 91 H 18 118/90 02/17/21 00:15 36.6 C 81 18 122/68 02/16/21 21:59 100 H 15 120/71 120/71 Pulse Ox Pulse Ox 02/17/21 07:45 99 02/17/21 04:05 02/17/21 03:05 02/17/21 02:05 98 02/17/21 01:35 98 02/17/21 01:05 100 100 02/17/21 00:41 99 02/17/21 00:31 98 02/17/21 00:23 100 02/17/21 00:15 100 02/16/21 21:59 100 Laboratory Results all 02/16/21 02/16/21 02/16/21 17:58 17:58 17:58 WBC 12.18 H RBC 3.41 L Hgb 10.4 L Hct 30.1 L MCV 88.3 MCH 30.5 MCHC 34.6 RDW Std Deviation 43.0 RDW Coeff of Patrizia 13.4 Plt Count 324 MPV 9.6 Immature Gran % (Auto) 0.2 Neut % (Auto) 66.4 Lymph % (Auto) 22.1 Coleman % (Auto) 10.5 Eos % (Auto) 0.7 Baso % (Auto) 0.1 Neut # (Auto) 8.09 H Lymph # (Auto) 2.69 Coleman # (Auto) 1.28 H Eos # (Auto) 0.08 Baso # (Auto) 0.01 Immature Gran # (Auto) 0.03 H PT 10.0 INR 1.0 APTT 27.2 PTT Ratio 1.0 Sodium Potassium Chloride Carbon Dioxide Anion Gap BUN Creatinine Est Cr Clr Drug Dosing Est GFR ( Amer) Est GFR (Non-Af Amer) BUN/Creatinine Ratio Glucose Calcium Total Bilirubin AST ALT Alkaline Phosphatase Total Protein Albumin Globulin Albumin/Globulin Ratio HCG, Quant COVID-19 Eval Order SARS-CoV-2 (PCR) Blood Type O Positive Antibody Screen NEGATIVE 02/16/21 02/16/21 02/16/21 17:58 17:58 21:49 WBC RBC Hgb Hct MCV MCH MCHC RDW Std Deviation RDW Coeff of Patrizia Plt Count MPV Immature Gran % (Auto) Neut % (Auto) Lymph % (Auto) Coleman % (Auto) Eos % (Auto) Baso % (Auto) Neut # (Auto) Lymph # (Auto) Coleman # (Auto) Eos # (Auto) Baso # (Auto) Immature Gran # (Auto) PT INR APTT PTT Ratio Sodium 137 Potassium 3.3 L Chloride 105 Carbon Dioxide 22 Anion Gap 10.0 BUN 11 Creatinine 0.60 Est Cr Clr Drug Dosing 123.8 Est GFR ( Amer) 146.8 Est GFR (Non-Af Amer) 126.7 BUN/Creatinine Ratio 18.6 Glucose 97 Calcium 9.1 Total Bilirubin 0.4 AST 14 L ALT 22 Alkaline Phosphatase 87 Total Protein 7.5 Albumin 3.6 Globulin 3.9 Albumin/Globulin Ratio 0.9 HCG, Quant [id number] COVID-19 Eval Order Covid19 at [facility] SARS-CoV-2 (PCR) Blood Type Antibody Screen 02/16/21 02/17/21 21:49 06:08 WBC 8.44 RBC 2.25 L Hgb 6.8 L* D Hct 20.2 L* MCV 89.8 MCH 30.2 MCHC 33.7 RDW Std Deviation 44.0 RDW Coeff of Patrizia 13.5 Plt Count 238 MPV 9.4 Immature Gran % (Auto) Neut % (Auto) Lymph % (Auto) Coleman % (Auto) Eos % (Auto) Baso % (Auto) Neut # (Auto) Lymph # (Auto) Coleman # (Auto) Eos # (Auto) Baso # (Auto) Immature Gran # (Auto) PT INR APTT PTT Ratio Sodium Potassium Chloride Carbon Dioxide Anion Gap BUN Creatinine Est Cr Clr Drug Dosing Est GFR ( Amer) Est GFR (Non-Af Amer) BUN/Creatinine Ratio Glucose Calcium Total Bilirubin AST ALT Alkaline Phosphatase Total Protein Albumin Globulin Albumin/Globulin Ratio HCG, Quant COVID-19 Eval Order SARS-CoV-2 (PCR) NEGATIVE Blood Type Antibody Screen
[2021-02-17] MEDS ORDERED: PRENATAL VITAMIN 1 TAB PO SCH (09:00)
--- NOTE | 2021-02-17 09:04 | Ultrasound Report ---
ULTRASOUND OF THE PELVIS CLINICAL HISTORY: Vaginal bleeding. Known molar . COMPARISON STUDY: No priors. TECHNIQUE: Real-time, grayscale, and color flow sonography of the pelvis is performed transabdominall y. The endovaginal examination was deferred. Images are reviewed in the transverse and longitudinal p lanes. FINDINGS: Uterus: The uterus is enlarged and heterogeneous, measuring 14.2 x 9.2 x 9.0 cm. Endometrium: A normal intrauterine gestation is not identified. There is a large amount of complex ma terial as well as fluid identified within the endometrium consistent with the reported history of a m olar . This measures up to 6.5 cm. Minimal internal flow is shown color imaging. Ovaries: The ovaries are normal in size and morphology. The right ovary measures 3.4 x 1.7 x 2.1 cm a nd the left ovary measures 2.8 x 2.0 x 2.1 cm. Small follicles are noted. Normal Doppler waveforms ar e shown within both ovaries. Pelvis: There is no free fluid in the cul-de-sac. No concerning adnexal lesion is seen. IMPRESSION: 1. Enlarged heterogeneous uterus with findings consistent with the reported history of a molar pregna ncy. 2. The ovaries are normal as visualized. 3. No adnexal abnormality is seen. ACT 112: Negative or not required by law. Electronically signed by: Kd Saez M.D. 02/17/2021 9:03 AM
--- NOTE | 2021-02-17 10:04 | Ultrasound Report ---
US guide intraoperative CLINICAL HISTORY: MOLAR . COMPARISON STUDY: Obstetrical ultrasound 02/16/2021. FINDINGS: Transabdominal scanning of the pelvis was performed for preoperative evaluation. Heterogene ous polycystic endometrium on preoperative evaluation. This is followed by dilatation and evacuation. IMPRESSION: Ultrasound intraoperative guidance for a dilatation and evacuation. ACT 112: Negative or not required by law. Electronically signed by: Red Watson M.D. 02/17/2021 10:03 AM
--- NOTE | 2021-02-25 22:06 | Discharge Summary (DS) ---
DATE OF DISCHARGE: 02/17/2021. REASON FOR ADMISSION AND HOSPITAL COURSE: The patient is a 26-year-old female, para 1-0-1-1, present s to the ER with vaginal bleeding. She had a known molar diagnosed by ultrasound and eleva lise hCG levels. She had excessive bleeding and passing clots in the ER. She was taken to the OR for D and E. D and E was done under ultrasound guidance, suctioning and curetting out molar a nd products of conception. This was submitted to pathology as a separate specimen. The patient did well, tolerated the procedure, and was discharged in the morning following the procedure without diff iculty. CONDITION ON DISCHARGE: Stable. DISCHARGE DIET: Regular diet. DISCHARGE MEDICATIONS: Motrin for pain. FOLLOWUP: In the office in 1 week for a followup. Job ID: [id number]
== END 2021-02-17 10:15 | disposition home or self-care (01) ==
LOC: ED 17:40 → OR 23:03 → 4S2 23:03 → INTOOBSV 23:04 → 4S2 23:04

== ENCOUNTER 2022-06-25 10:57 | Inpatient (IN) ==
[2022-06-25] MEDS ORDERED: LIDOCAINE 1% LOCAL 20 ML VIAL INFIL PRN (11:39)
[2022-06-25] MEDS ORDERED: OXYTOCIN 30 UNITS/500 ML BAG IV PRN ×3 (11:39→17:30)
[2022-06-25] MEDS: LACTATED RINGER'S 1,000 ML IV PRN ×2 (12:08→13:36)
[2022-06-25] MEDS ORDERED: ePHEDrine sulfate 50 MG/ML AMP ONE (12:20)
[2022-06-25] MEDS ORDERED: fentaNYL citrate 100 MCG/2 ML VIAL ONE (12:20)
[2022-06-25] MEDS ORDERED: SODIUM CHLORIDE 0.9% INJ 10 ML VIAL ONE (12:21)
[2022-06-25] MEDS ORDERED: BUPIVACAINE 0.25% 30 ML VIAL ONE (12:21)
[2022-06-25] MEDS ORDERED: LIDOCAINE 2%/EPINEPHRINE 1:200,000 20 ML SDV ONE (12:21)
[2022-06-25] MEDS ORDERED: fentaNYL 2MCG/ML ROPIVACAINE 1.25MG/ML 100 ML BAG EPI ONE (12:22)
[2022-06-25 12:24] LABS: Hematocrit (blood only) 32.9 % (34.1-44.9); Hemoglobin 11.4 g/dl (12.0-16.0); Mean Corpuscular Hemoglobin 31.1 pg (25.0-34.0); Mean Corpuscular Hgb Conc 34.7 g/dL (32.0-36.0); Mean Corpuscular Volume 89.9 fL (80.0-100.0); Mean Platelet Volume 11.2 fL (9.4-12.3); Platelet Count 195 K/uL (130-400); RDW Coefficient of Variation 12.5 % (11.5-14.5); RDW Standard Deviation 41.1 fL (36.4-46.3); Red Blood Count 3.66 M/uL (3.93-5.22); White Blood Count 13.39 K/ul (4.8-10.8)
--- NOTE | 2022-06-25 12:47 | Labor Progress Brief Note ---
Date of Service June 25, 2022 Assessment & Plan Admission and Anticipated Discharge Date Admission Date: June 25, 2022 Physical Exam Genitourinary: Manual OB Exam: + cervical dilation 4 cm and 5 cm, + cervical effacement 90%, + station 0 and + amniotic fluid clear OB Exam Monitor Tracing: + external FHT monitor used, + external uterine monitor used, + category I and + normal FHT variability Results & Data ([facility]) Vital Signs (Past 12 Hours) Vital Signs Temp Pulse Resp Pulse Ox 06/25/22 12:41 71 99 06/25/22 12:36 78 95 06/25/22 12:31 72 98 06/25/22 11:19 36.7 C 20
[2022-06-25] MEDS ORDERED: NALBUPHINE HCL INJ 10 MG/ML AMP IV PRN (12:58)
[2022-06-25] MEDS ORDERED: NALOXONE HCL 0.4 MG/1 ML VIAL/CARP IV PRN (12:58)
[2022-06-25] MEDS ORDERED: diphenhydrAMINE 50 MG/ML VIAL IV PRN (12:58)
[2022-06-25] MEDS ORDERED: NALOXONE HCL 1 MG in SODIUM CHLORIDE 0.9% 1000ML 1,000 ML IV PRN (12:58)
[2022-06-25] MEDS ORDERED: fentaNYL 2MCG/ML ROPIVACAINE 1.25MG/ML 100 ML BAG EPI PRN (12:58)
[2022-06-25] MEDS ORDERED: ePHEDrine sulfate 50 MG/ML AMP IV PRN (12:58)
[2022-06-25] MEDS ORDERED: ONDANSETRON INJ 2 MG/ML 2 ML VIAL IV PRN (12:58)
--- NOTE | 2022-06-25 13:07 | History & Physical Report ---
Date of Service June 25, 2022 Assessment & Plan (1) Spontaneous rupture of amniotic membranes: Plan: anticipate normal delivery Admission and Anticipated Discharge Date Admission Date: June 25, 2022 History of Present Illness Chief Complaint: Spontaneous rupture of membranes this morning Primary Care Provider: KRISTOPHER PCP 27 F [id number] at 39.1 weeks here for SROM clear fluid this AM confirmed by Amni- sure. GBS is negative. Covid is pending. Allergies Allergy/AdvReac Type Severity Reaction Status Date / Time No Known Allergies Allergy Verified 02/16/21 18:20 Home Medications Medication Instructions Recorded Confirmed Type vit no.133-ferrous 1 tab PO DAILY 02/16/21 06/25/22 History fumarate 28 mg-folic acid 800 mcg tablet () Past Med/Surg History Medical History (Updated 06/25/22 @ 13:06 by Chrsi Hood MD) GERD (gastroesophageal reflux disease) only during Surgical History (Updated 06/25/22 @ 11:16 by Pili Chew RN) H/O dilation and curettage [place] teeth extracted Social History (Updated 06/25/22 @ 11:15 by Pili Chew RN) Smoking Status: Current every day smoker Cigarettes Per Day: 10; Second Hand Exposure: Yes; Hx Alcohol Use: No Hx Substance Use: No Preferred Language: Liberian Communication Ability: Effective Vocational Rehabilitation Teacher Required: No Beliefs That Will Affect Care: None marital status: Current Living Situation: Significant Other Current Living Situation Comment: Significant other, 3 children current occupational status: employed 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 Feels Safe at Home: Yes Safety Concerns: Feels Safe At This Time Assistive Devices: Contacts Review of Systems Review of Systems: All systems reviewed & are unremarkable except as noted in HPI & below Physical Exam Constitutional: WD/WN, vitals as above Eyes: PERRL, conjunctivae normal, anicteric sclerae Respiratory: normal respiratory effort, lungs clear to auscultation Cardiovascular: RRR, no murmur, no edema Gastrointestinal (Abdomen): normal bowel sounds, soft, nontender, no hepatosplenomegaly Percussion/Palpation: abdomen soft Musculoskeletal: Extremities: extremities normal to inspection Skin: no rashes, warm and dry Neurologic: patellar DTR's 2+ bilat, sensation intact Psychiatric: A+Ox3, euthymic affect Genitourinary: Manual OB Exam: + cervical dilation 4 cm and 5 cm, + cervical effacement 90%, + station 0 and + amniotic fluid clear OB Exam Monitor Tracing: + external FHT monitor used, + external uterine monitor used, + category I and + normal FHT variability Results & Data Results & Data ([facility]) Vital Signs (Past 12 Hours) Vital Signs Temp Pulse Resp Pulse Ox 06/25/22 12:56 67 99 06/25/22 12:51 69 100 06/25/22 12:46 72 99 06/25/22 12:41 71 99 06/25/22 12:36 78 95 06/25/22 12:31 72 98 06/25/22 11:19 36.7 C 20 Laboratory Results 06/25/22 06/25/22 11:10 11:44 WBC 13.39 H RBC 3.66 L Hgb 11.4 L Hct 32.9 L MCV 89.9 MCH 31.1 MCHC 34.7 RDW Std Deviation 41.1 RDW Coeff of Patrizia 12.5 Plt Count 195 MPV 11.2 SARS-CoV-2, RNA, NAAT NEGATIVE Code Status & VTE Plan VTE Prophylaxis Plan VTE Prophylaxis will be ordered: No
--- NOTE | 2022-06-25 13:20 | Anesthesiology Consultation ---
Date of Service June 25, 2022 Assessment & Plan (1) Encounter for pre-operative examination: Chart Review Chart Review: Patient NOT seen in Pre Admission Testing and Acceptable Risk for Labor Epidural Consults Requested none History Height/Weight Height: 5 ft 4 in Weight: 74.843 kg Allergies Allergy/AdvReac Type Severity Reaction Status Date / Time No Known Allergies Allergy Verified 02/16/21 18:20 Medications Home Medications Medication Instructions Recorded Confirmed Last Taken vit no.133-ferrous 1 tab PO DAILY 02/16/21 06/25/22 06/25/22 fumarate 28 mg-folic acid 800 mcg tablet () Active Medications Generic Name Dose Route Start Last Admin Trade Name Freq PRN Reason Stop Dose Admin Lactated Ringer's 1,000 mls @ 125 mls/hr 06/25/22 11:39 06/25/22 13:05 Lr IV 06/27/22 11:38 125 mls/hr .Q8H PRN Infusion L&D Protocol Protocol NPO Date Last Intake of Fluids: 06/25/22 Time Last Intake of Fluids: 12:00 Date Last Intake of Solids: 06/24/22 Time Last Intake of Solids: 20:00 Past Medical History Medical History GERD (gastroesophageal reflux disease) only during Exercise / Class Metabolic Activity II 4-5 Yardwork/Stairs/Walk up hill Past Surgical History Surgical History H/O dilation and curettage [place] teeth extracted Past Anesthesia History No Hx of Anesthesia Complications and No Family Hx of Anesthesia Complications History of PONV No Hx of PONV and No Hx of Motion Sickness Social History Smoking Status: Current every day smoker tobacco type: cigarettes Smoking cigarettes per day: 10 Hx Alcohol Use: No alcohol intake frequency: holidays/special occasions only Hx Substance Use: No substance use type: does not use Physical Exam Vital Signs Last Vital Signs Temp 36.7 C 06/25/22 11:19 Pulse 73 06/25/22 13:18 Resp 20 06/25/22 11:19 BP 128/60 06/25/22 13:18 Pulse Ox 98 06/25/22 13:17 Testing Laboratory Results 06/25/22 11:44
--- NOTE | 2022-06-25 17:21 | Delivery Summary ---
Vaginal Delivery Summary Date of Service June 25, 2022 Vaginal Delivery Summary Delivery Note live male MICHELLE over intact perineum with delayed cord clamping and Apgars 8/9 weight pending. Cord blood obtained followed by spontaneous delivery of intact placenta with 3VC. No tears. EBL 100 ml. Final sponge and instrument count are correct. Mom and baby stable.
[2022-06-25] MEDS ORDERED: bisacodyL 10 MG SUPP PR PRN (17:30)
[2022-06-25] MEDS ORDERED: DIPHTHERIA/TETANUS/PERTUSSIS 0.5 ML SYR/VIAL IM ONE (17:30)
[2022-06-25] MEDS ORDERED: BENZOCAINE 20% AER SPR 82.5 GM CAN EXT PRN (17:30)
[2022-06-25] MEDS ORDERED: ACETAMINOPHEN 325 MG TAB PO PRN (17:30)
[2022-06-25] MEDS ORDERED: HYDROCORTISONE ACETATE 25 MG SUPP PR PRN (17:30)
--- NOTE | 2022-06-25 17:52 | Anesthesia Procedure Note ---
Date of Service June 25, 2022 Anesthesia Post Epidural Note Vital Signs Vital Signs: Temp Pulse Resp BP Pulse Ox O2 Del Method 36.5 C 81 20 115/75 98 06/25/22 14:37 06/25/22 17:51 06/25/22 17:20 06/25/22 17:51 06/25/22 17:12 06/25/22 11:00 Pain Intensity Abdomen: Pain Intensity: 7 Notes Mental Status: alert / awake / arousable and participated in evaluation Nausea / Vomiting: adequately controlled Pain: adequately controlled Airway Patency, RR, SpO2: stable & adequate BP & HR: stable & adequate Hydration State: stable & adequate Neuraxial Anesthesia: was administered and sensory block is resolving Anesthetic Complications: no major complications apparent and Pt Satisfied with anesthetic care Epidural: Removed without complications and With tip intact
[2022-06-25] MEDS: DOCUSATE SODIUM 100 MG CAP PO SCH (20:23)
[2022-06-25] MEDS: IBUPROFEN 600 MG TAB PO PRN (20:59)
[2022-06-26] MEDS: IBUPROFEN 600 MG TAB PO PRN ×3 (01:57→15:18)
[2022-06-26] MEDS ORDERED: PRENATAL VITAMIN 1 TAB PO SCH (08:00)
[2022-06-26] MEDS ORDERED: FERROUS SULFATE 325 MG TAB PO SCH (08:00)
[2022-06-26] MEDS: DOCUSATE SODIUM 100 MG CAP PO SCH (08:40)
[2022-06-26 08:43] LABS: Hematocrit (blood only) 33.4 % (34.1-44.9); Hemoglobin 11.5 g/dl (12.0-16.0); Mean Corpuscular Hemoglobin 31.4 pg (25.0-34.0); Mean Corpuscular Hgb Conc 34.4 g/dL (32.0-36.0); Mean Corpuscular Volume 91.3 fL (80.0-100.0); Mean Platelet Volume 10.9 fL (9.4-12.3); Platelet Count 183 K/uL (130-400); RDW Coefficient of Variation 12.6 % (11.5-14.5); RDW Standard Deviation 42.1 fL (36.4-46.3); Red Blood Count 3.66 M/uL (3.93-5.22); White Blood Count 12.05 K/ul (4.8-10.8)
[2022-06-26] MEDS ORDERED: NON-FORMULARY MEDICATION (Pnv133-Ferrous Fumarate-Fa [Prenatal] 28-800 mg-mcg Tablet) PO SCH (09:00)
--- NOTE | 2022-06-26 09:29 | Obstetrical Progress Note ---
Date of Service June 26, 2022 Assessment & Plan Admission and Anticipated Discharge Date Admission Date: June 25, 2022 Subjective Patient is seen and examined. She feels well, no complaints. Ambulating without dizziness Voiding without difficulty Tolerating regular diet with out N&V Bleeding is minimal No fever/ chills/ CP/ SOB/ N&V/ Leg pain Bottle feeding without problems Lab Results 06/25/22 06/25/22 06/26/22 Range/Units 11:10 11:44 08:21 WBC 13.39 H 12.05 H (4.8-10.8) K/ul RBC 3.66 L 3.66 L (3.93-5.22) M/uL Hgb 11.4 L 11.5 L (12.0-16.0) g/dl Hct 32.9 L 33.4 L (34.1-44.9) % MCV 89.9 91.3 (80.0-100.0) fL MCH 31.1 31.4 (25.0-34.0) pg MCHC 34.7 34.4 (32.0-36.0) g/dL RDW Std Deviation 41.1 42.1 (36.4-46.3) fL RDW Coeff of Patrizia 12.5 12.6 (11.5-14.5) % Plt Count 195 183 (130-400) K/uL MPV 11.2 10.9 (9.4-12.3) fL SARS-CoV-2, RNA, NAAT NEGATIVE (NEGATIVE) Vital Signs Temp Pulse Resp BP O2 Del Method 06/26/22 07:25 36.6 C 51 L 16 116/81 Room Air 06/26/22 04:25 36.5 C 67 18 115/74 06/26/22 00:15 36.5 C 71 18 107/65 PE: General: Alert, orientedx3, NAD Abd: soft, NT, fundus firm, below Umbilicus Perineum intact, Lochia rubra minimal Ext; NT, no edema AP: 27 yo s/p , ppd# 1 VSS Afebrile doing well Continue routine care All questions were answered Desires D/C home today Results & Data ([facility]) Vital Signs (Past 12 Hours) Vital Signs Temp Pulse Resp BP O2 Del Method 06/26/22 07:25 36.6 C 51 L 16 116/81 Room Air 06/26/22 04:25 36.5 C 67 18 115/74 06/26/22 00:15 36.5 C 71 18 107/65
[2022-06-26] MEDS ORDERED: MEASLES, MUMPS & RUBELLA VIRUS VIAL SQ ONE (18:08)
[2022-06-26] MEDS ORDERED: bisacodyL 5 MG TABEC PO SCH (20:00)
== END 2022-06-26 19:46 | disposition home or self-care (01) | DRG 807 ==
LOC: OPB 10:57 → 4S1 11:04 → 4E2 19:15
DX: Z37.0 Single live birth; O99.334 Smoking (tobacco) complicating childbirth; F17.210 Nicotine dependence, cigarettes, uncomplicated; Z3A.39 39 weeks gestation of pregnancy